=== PATIENT | male | born 1985 | race Caucasian/White ===

== ENCOUNTER 2024-04-15 15:22 | Emergency (ER) | payer OTHER, SELFPAY ==
[2024-04-15 15:23] VITALS: BP 179/109; PULSE 97; RESP 16; TEMP 36.4; O2SAT 100; BMI 39.6
[2024-04-15 15:25] VITALS: BP 179/109; PULSE 97; RESP 16; TEMP 36.4; O2SAT 100
--- NOTE | 2024-04-15 15:47 | CT_ITS ---
STUDY: CT FACIAL BONES WITH CONTRAST REASON FOR EXAM: Male, 38 years old. swelling/redness R maxillary face/ear RADIATION DOSAGE (If Supplied By Facility): CTDIvol = ( 29.38 ) mGy, DLP = ( 635.61 ) mGycm TECHNIQUE: The patient was scanned in a multi detector CT scanner. Transaxial imaging was performed following the intravenous administration of IV 75mL Isovue-300. Sagittal and coronal images were reconstructed. Individualized dose optimization techniques were used for this CT. COMPARISON: None. FINDINGS: Minimal nonspecific soft tissue swelling and skin thickening seen around the right orbit with subcutaneous induration. No focal fluid collection. No evidence for abscess. Normal orbital jaime and orbital contents. Normal nasal bones and anterior nasal spine. Normal facial bones. There is no demonstrated fracture. Normal visualized paranasal sinuses. CT/Sinus/Facial Bone WITH Contras IMPRESSION: Nonspecific skin thickening and subcutaneous induration around the right orbit. No focal fluid collection or abscess. Electronically Signed: Hitesh Brady MD at 16:47 EST ,
--- NOTE | 2024-04-15 15:48 | EDS_ITS ---
HPI History of Present Illness Chief Complaint: Rash Informant: patient Narrative Narrative: 38-year-old male states he was sent from dermatology to have a CT scan and antibiotics and was told he has erysipelas of the face. He states that 4 days ago, he was in the sauna and after coming out he noticed in the mirror that his face was a splotchy with red areas. The next day he noticed that the redness and swelling was persistent in the right cheek. He has had no pain. He states maybe it was a little itchy. He made an appointment today with dermatology, was seen by them today, and told to come to the ER for the above reason. He states other than that they did not really tell him anything. He denies any systemic symptoms such as fevers or chills. He states he was referred to dermatology before all of this for separate reasons, nonspecific rashes that he would get and a lump beneath his jaw, and he feels like he has a patch of that rash on his right ear right now. None of this is painful. PFSH PFSH Medical History no medical history no medical history Home Medications ?Medication ?Instructions ?Recorded ?Last Taken ?Type amoxicillin 875 mg-potassium 1 tab PO BID #20 tabs 04/15/24 Unknown Rx clavulanate 125 mg tablet Allergy/AdvReac Type Severity Reaction Status Date / Time No Known Allergies Allergy Verified 04/15/24 15:26 Social History Smoking Status: Never smoker ROS ROS ED Constitutional Constitutional ED: Denies chills or fever(s) ENT ENT ED: Denies dental pain, dizziness, ear pain, facial pain, headache(s), nasal congestion, rhinorrhea or sinus pain Respiratory/Chest Respiratory/Chest: Denies dyspnea Gastrointestinal Gastrointestinal: Denies abdominal pain Musculoskeletal Musculoskeletal: Denies back pain or neck pain Integumentary Reports as per HPI and rash EXAM Physical Exam Const Vital Signs: 04/15/24 15:23 04/15/24 15:25 Temperature 97.5 F L 97.5 F L Temperature Source Temporal Temporal Pulse Rate 97 97 Respiratory Rate 16 16 Blood Pressure 179/109 H 179/109 H Blood Pressure Mean 132 132 Pulse Ox 100 100 Oxygen Delivery Method Room Air Room Air Positive well nourished, well developed and obese General Appearance ED: well developed and NAD Nutritional Appearance: obese HEENT HEENT Narrative: Nontender hyperemia right cheek, mild above the right eye, none of which is tender or indurated. There is no purpura or ecchymosis. The eye appears normal. The right ear is nontender, mildly hyperemic with what feels like a fine papular rash on the outside of the pinna. There is a palpable periauricular lymph node that is nontender, mobile. There is no preauricular lymphadenopathy or swelling/tenderness at the parotid. Oral exam is normal. He has some nontender redness within his long chavez. The contralateral left maxillary area and ear are normal. Eyes PERRL and EOMs intact bilaterally Eyes Narrative: No pain or diplopia with extraocular movements. No proptosis or enophthalmos. Neck no lymphadenopathy and supple General: Negative for tenderness Resp normal respiratory effort Effort and Inspection: able to speak in complete sentences Extremity normal to inspection Neuro oriented x3, CN's II-XII intact bilaterally and no sensory deficits noted Psych mental status grossly normal Skin Skin Narrative: See above, rash on the right face MDM MDM MDM Narrative Medical decision making narrative: This patient has a mild amount of swollen the erythema in the face that is not tender, and although I do feel periauricular lymph node, it is not tender either, suggesting that it may not be a reactive node to an infection. My understanding is that erysipelas is very painful and tender and this is not, leading me to think maybe this was some type of contact dermatitis possibly due to his CPAP strap which also goes across to where his ear rash is. Since it was unclear why the patient was sent here and not simply started on outpatient antibiotics, and because additionally, nursing took a call from the office and wrote a note to me that the patient was positive for aerosyphillis, I called the office to speak with the physician who saw him. The PA saw him in conjunction with Dr. Escobedo, and this note was incorrect they were simply reinforcing the fact that their clinical diagnosis was erysipelas, and they were indicating that because it was on his face they were requesting a CT to rule out deep space involvement, and they are requesting a dose of IV antibiotics and to send him home on orals if his CT is negative for anything that would require admission. CT with IV contrast was obtained, which would show the soft tissues best. I reviewed the images and the report which I agree with, it is negative except for some mild nonspecific swelling where the patient's swelling is clinically in the right face. Given that they are concerned more about infection, he was given a dose of IV Unasyn as well as Augmentin prescription to go home with and he is comfortable with that plan of following up. Lab Data Attestation: I reviewed the patient's lab results. Labs: Laboratory Results - last 24 hr 04/15/24 15:55 WBC 5.9 RBC 5.31 Hgb 15.6 Hct 48.0 MCV 90.4 MCH 29.4 MCHC 32.5 RDW Std Deviation 40.2 RDW Coeff of Meek 12.2 Plt Count 272 MPV 9.3 Immature Gran % (Auto) 0.300 Neut % (Auto) 55.2 Lymph % (Auto) 31.1 [place] % (Auto) 9.5 Eos % (Auto) 3.2 Baso % (Auto) 0.7 Absolute Neuts (auto) 3.3 Absolute Lymphs (auto) 1.84 Nucleated RBC % 0 Sodium 139 Potassium 3.6 Chloride 106 Carbon Dioxide 25.0 Anion Gap 8 BUN 13 Creatinine 1.11 Estim Creat Clear Calc 125.85 Est GFR (MDRD) Af Amer 96 Est GFR (MDRD) Non-Af 79 BUN/Creatinine Ratio 11.7 Glucose 103 Calcium 9.4 Radiography Diagnostic Testing: Clinical Impression(s) from Imaging Studies Facial/Sinus 04/15/24 15:47 IMPRESSION: Nonspecific skin thickening and subcutaneous induration around the right orbit. No focal fluid collection or abscess. Electronically Signed: Hitesh Brady MD at 16:47 EST , Management Discussion w/another healthcare provider: Bobbin Cleaner Hand (see above) Discharge Plan Triage Chief Complaint: Rash ED Provider: Alejandro Collins Dx/Rx/DC Orders Clinical Impression: Facial rash Instructions: Cellulitis Dc Prescriptions: New amoxicillin-pot clavulanate 875-125 mg tablet 1 tab PO BID Qty: 20 0RF Primary Care Provider: Emily Tovar Referrals: Emily Tovar MD [Primary Care Provider] - 3-5 Days if not improving (or [facility]) Print Language: [place] Disposition Disposition: Home, Self Care Discharge Date/Time: 04/15/24 18:55
[2024-04-15 16:08] LABS: Absolute Lymphocyte Count 1.84 X10^3/uL (0.83-4.51); Absolute Neutrophil Count 3.3 X10^3/uL (2.0-7.7); Basophil# 0.04 X10^3/uL; Basophil% 0.7 % (0-1); Eosinophil# 0.19 X10^3/uL; Eosinophils% 3.2 % (0-5); Hemoglobin 15.6 g/dL (13.0-16.5); Lymphocyte # 1.84 X10^3/ul (0.83-4.51); Lymphocyte % 31.1 % (19-41); Mean Corp Hgb Conc 32.5 g/dL (32-36); Mean Corpuscular Hgb 29.4 pg (27.0-32.0); Mean Corpuscular Volume 90.4 fL (80-94); Mean Platelet Vol. 9.3 fl (6.2-12.0); Monocyte# 0.56 X10^3/uL; Monocyte% 9.5 % (0-10); NRBC Flagged by Analyzer 0 % (0-5); Neutrophil # 3.26 X10^3/uL (2.7-7.7); Neutrophil % 55.2 % (47-70); Platelet Count 272 K/mm3 (150-450); RBC Distribution Width CV 12.2 % (11.6-14.6); RBC Distribution Width SD 40.2 fl (35.1-43.9); Red Blood Count 5.31 M/mm3 (4.6-6.2); White Blood Count 5.9 K/mm3 (4.4-11.0)
[2024-04-15 16:25] LABS: Anion Gap 8 (5-15); BUN 13 mg/dL (7-18); BUN/Creat Ratio 11.7 RATIO (10-20); Calcium,Total 9.4 mg/dL (8.5-10.1); Chloride 106 mmol/L (98-107); Creatinine, Serum 1.11 mg/dL (0.70-1.30); EST Glomerular Filtration Rate 79 mL/min (>60); Est Glom Filt Rate - Afr Amer 96 mL/min (>60); Estimated Creatinine Clearance 125.85 ml/min; Glucose 103 mg/dL (74-106); Potassium 3.6 mmol/L (3.5-5.1); Sodium Level 139 mmol/L (136-145)
[2024-04-15] MEDS: Ampicillin/Sulbactam 3 GM in 0.9% Normal Saline (100mL MB+) 100 ML IV (17:17)
== END 2024-04-15 18:55 | disposition home or self-care (01) ==
PROVIDERS: Emergency Provider Emergency Medicine; PCP Family Medicine; Visit Provider Emergency Medicine
DX: R21 Rash and other nonspecific skin eruption (principal); E66.9 Obesity, unspecified
CPT/HCPCS: 70487; 80048; 85025; 96365; 96366; 99282; J7040; Q9967; A4216; J0295